=== PATIENT | female | born 2000 | race Caucasian/White ===

== ENCOUNTER 2021-10-07 22:03 | Emergency (ER) | payer OTHER ==
[~2021-10-07] VITALS: Ht 144.8 cm; Wt 57.2 kg
[2021-10-07 22:42] VITALS: BP 110/79
--- NOTE | 2021-10-07 22:52 | NUR ---
patient in tent
[2021-10-07] MEDS ORDERED: ALBUTEROL SULFATE/IPRATROPIU 3 ML SOL IH ONE (23:45)
--- NOTE | 2021-10-08 00:03 | NUR ---
Sandra tellez in [facility] - 10/08/21 at 0003 by [facility] patient ambulated to bed 4
[2021-10-08] MEDS ORDERED: ALBU0.0912 IH (00:17)
[2021-10-08] MEDS ORDERED: PRED20TA5 PO (00:17)
--- NOTE | 2021-10-08 00:22 | NUR ---
RT with patient for breathing tx
[2021-10-08 00:55] VITALS: BP 115/71
--- NOTE | 2021-10-08 00:55 | NUR ---
Patient discharged with v/s stable. Written and verbal after care instructions given and explained. Patient alert, oriented and verbalized understanding of instructions. Ambulatory with steady gait. All questions addressed prior to discharge. ID band removed. Patient advised to follow up with PMD. Rx of prelone and albuterol sulfate given. Patient educated on indication of medication including possible reaction and side effects. Opportunity to ask questions provided and answered.
== END 2021-10-08 00:55 | disposition home or self-care (01) ==
LOC: MED 22:03
DX: J20.9 Acute bronchitis, unspecified (principal); Z20.822 Contact with and (suspected) exposure to COVID-19; R11.10 Vomiting, unspecified
CPT/HCPCS: 71045; 94640; 99284